=== PATIENT | male | born 1995 | race Caucasian/White ===

== ENCOUNTER 2021-12-08 20:04 | Emergency (ER) | payer BC ==
--- NOTE | 2021-12-08 22:34 | ER ---
Nurse's Notes [facility] Name: Anderson Stokes Age: 26 yrs Sex: Male : 1995 Arrival Date: 12/08/2021 Time: 20:09 Bed 19 Private MD: Diagnosis: GI Bleed/ Gastrointestinal hemorrhage, unspecified;Unspecified hemorrhoids Presentation: 12/08 20:51 Chief complaint: Patient states: I am bleeding from my rectum and my sisters think I bm7 have a rupture hemorrhoid. Every time I sit on the toilet I have bright red bleeding. Coronavirus screen: At this time, the client does not indicate any symptoms associated with coronavirus-19. Ebola Screen: No symptoms or risks identified at this time. Initial Sepsis Screen: Does the patient meet any 2 criteria? No. Patient's initial sepsis screen is negative. Does the patient have a suspected source of infection? No. Patient's initial sepsis screen is negative. Risk Assessment: Do you want to hurt yourself or someone else? Patient reports no desire to harm self or others. Onset of symptoms was December 07, 2021. 20:51 Method Of Arrival: Ambulatory 7 20:51 Acuity: KASSIE 3 bm7 Triage Assessment: 20:53 General: Appears in no apparent distress. uncomfortable, obese, well groomed, well bm7 developed, Behavior is calm, cooperative, appropriate for age. Pain: Complains of pain in right lower quadrant and left lower quadrant Pain does not radiate. EENT: No deficits noted. No signs and/or symptoms were reported regarding the EENT system. Neuro: No deficits noted. Cardiovascular: No deficits noted. Respiratory: No deficits noted. GI: Reports lower abdominal pain, constipation, rectal bleeding, bloody stool, hemorrhoids. : No deficits noted. No signs and/or symptoms were reported regarding the genitourinary system. Derm: No deficits noted. No signs and/or symptoms reported regarding the dermatologic system. Musculoskeletal: No deficits noted. No signs and/or symptoms reported regarding the musculoskeletal system. Historical: - Allergies: 20:53 No Known Allergies; bm7 - Home Meds: 20:53 None [Active]; bm7 - PMHx: 20:53 None; bm7 - PSHx: 20:53 None; bm7 - Immunization history:: Adult Immunizations up to date, Client reports having NOT received the Covid vaccine. - Social history:: Smoking status: Patient denies any tobacco usage or history of. Screenin:52 Abuse screen: Denies threats or abuse. Nutritional screening: No deficits noted. ll3 Tuberculosis screening: No symptoms or risk factors identified. Fall Risk None identified. Assessment: 21:20 General: Appears uncomfortable, Behavior is calm, cooperative. Pain: Complains of pain ll3 in gluteal cleft. Neuro: Level of Consciousness is awake, alert, obeys commands, Oriented to person, place, time, situation. Respiratory: Respiratory effort is even, unlabored, Respiratory pattern is regular, symmetrical. Derm: Reports pain Rectal bleeding. Vital Signs: 20:51 BP 162 / 90; Pulse 72; Resp 16; Temp 99.2(O); Pulse Ox 100% on R/A; Weight 151.95 kg bm7 (R); Height 6 ft. 0 in. (182.88 cm); Pain 3/10; 22:52 BP 155 / 92; Pulse 65; Resp 16; Pulse Ox 100% on R/A; ll3 20:51 Body Mass Index 45.43 (151.95 kg, 182.88 cm) bm7 ED Course: 20:09 Patient arrived in ED. jj6 20:19 Hieu Key MD is Attending Physician. kdr 20:53 Triage completed. bm7 20:53 Arm band placed on left wrist. bm7 22:52 Patient has correct armband on for positive identification. Bed in low position. Call ll3 light in reach. Side rails up X 1. 22:52 No provider procedures requiring assistance completed. Patient did not have IV access ll3 during this emergency room visit. Administered Medications: No medications were administered Medication: 22:52 VIS not applicable for this client. ll3 Outcome: 22:33 Discharge ordered by . kdr 22:52 Discharged to home ambulatory. ll3 22:52 Condition: stable 22:52 Discharge instructions given to patient, Instructed on discharge instructions, follow up and referral plans. medication usage, Demonstrated understanding of instructions, follow-up care, medications, Prescriptions given X 2. 22:53 Patient left the ED. ll3 Signatures: Hieu Key MD MD kdr McCarthy, Brittany, RN RN 7 Sariah Guzman j6 Malcolm Dennison, RN RN ll3
--- NOTE | 2021-12-08 22:34 | EDPHYS ---
Physician Documentation [facility] Name: Anderson Stokes Age: 26 yrs Sex: Male : 1995 Arrival Date: 12/08/2021 Time: 20:09 Bed 19 Private MD: ED Physician Hieu Key HPI: 12/08 23:37 This 26 yrs old Male presents to ER via Ambulatory with complaints of Hemorrhoids. kdr 23:37 The patient presents to the emergency department with rectal bleeding, bright red blood kdr with bowel movement, in toilet bowl. Onset: The symptoms/episode began/occurred yesterday. Abdominal pain: none is appreciated. Modifying factors: The symptoms are alleviated by nothing, the symptoms are aggravated by nothing. Associated signs and symptoms: The patient has no apparent associated signs or symptoms. Severity of symptoms: At their worst the symptoms were mild in the emergency department the symptoms are unchanged. The patient has not experienced similar symptoms in the past. The patient has not recently seen a physician. Historical: - Allergies: 20:53 No Known Allergies; bm7 - Home Meds: 20:53 None [Active]; bm7 - PMHx: 20:53 None; bm7 - PSHx: 20:53 None; bm7 - Immunization history:: Adult Immunizations up to date, Client reports having NOT received the Covid vaccine. - Social history:: Smoking status: Patient denies any tobacco usage or history of. ROS: 23:37 Constitutional: Negative for fever, chills, and weight loss, Eyes: Negative for injury, kdr pain, redness, and discharge, ENT: Negative for injury, pain, and discharge, Neck: Negative for injury, pain, and swelling, Cardiovascular: Negative for chest pain, palpitations, and edema, Respiratory: Negative for shortness of breath, cough, wheezing, and pleuritic chest pain, Back: Negative for injury and pain, : Negative for injury, bleeding, discharge, and swelling, MS/Extremity: Negative for injury and deformity, Skin: Negative for injury, rash, and discoloration, Neuro: Negative for headache, weakness, numbness, tingling, and seizure activity. Psych: Negative for depression, anxiety, suicide ideation, homicidal ideation, and hallucinations, Allergy/Immunology: Negative for hives, rash, and allergies, Endocrine: Negative for neck swelling, polydipsia, polyuria, polyphagia, and marked weight changes, Hematologic/Lymphatic: Negative for swollen nodes, abnormal bleeding, and unusual bruising. 23:37 Abdomen/GI: Positive for rectal pain, rectal bleeding. Exam: 23:37 Constitutional: This is a well developed, well nourished patient who is awake, alert, kdr and in no acute distress. Head/Face: Normocephalic, atraumatic. Respiratory: Lungs have equal breath sounds bilaterally, clear to auscultation and percussion. No rales, rhonchi or wheezes noted. No increased work of breathing, no retractions or nasal flaring. Abdomen/GI: Soft, non-tender, with normal bowel sounds. No distension or tympany. No guarding or rebound. No evidence of tenderness throughout. Back: No spinal tenderness. No costovertebral tenderness. Full range of motion. 23:37 Abdomen/GI: Rectal exam: hemorrhoid(s), external, with pain, without bleeding, without thrombosis. Vital Signs: 20:51 BP 162 / 90; Pulse 72; Resp 16; Temp 99.2(O); Pulse Ox 100% on R/A; Weight 151.95 kg bm7 (R); Height 6 ft. 0 in. (182.88 cm); Pain 3/10; 22:52 BP 155 / 92; Pulse 65; Resp 16; Pulse Ox 100% on R/A; ll3 20:51 Body Mass Index 45.43 (151.95 kg, 182.88 cm) bm7 MDM: 22:33 Patient medically screened. kdr 23:37 Data reviewed: vital signs, nurses notes. Counseling: I had a detailed discussion with kdr the patient and/or guardian regarding: the historical points, exam findings, and any diagnostic results supporting the discharge/admit diagnosis, the need for outpatient follow up. Administered Medications: No medications were administered Disposition Summary: 12/08/21 22:33 Discharge Ordered Location: Home kdr Problem: new kdr Symptoms: have improved kdr Condition: Stable kdr Diagnosis - GI Bleed/ Gastrointestinal hemorrhage, unspecified kdr - Unspecified hemorrhoids kdr Followup: kdr - With: Private Physician - When: 2 - 3 days - Reason: If symptoms return, Further diagnostic work-up, Recheck today's complaints, Continuance of care, Re-evaluation by your physician Discharge Instructions: - Discharge Summary Sheet kdr - High-Fiber Diet kdr - Gastrointestinal Bleeding kdr - Rectal Bleeding kdr - Hemorrhoids, [id number] kdr - How to Take a Sitz Bath kdr - Rectal Bleeding, [id number] kdr - Surgical Procedures for Hemorrhoids kdr - Nonsurgical Procedures for Hemorrhoids, Care After kdr Forms: - Medication Reconciliation Form kdr - Thank You Letter kdr Prescriptions: - Miralax - take 1 packet by ORAL route once daily As needed; 1 box; Refills: 0, Product kdr Selection Permitted - Tucks (lei lo) - Apply to affected area 1 patch by RECTAL route as directed As needed Use as kdr directed on box; 1 box; Refills: 0, Product Selection Permitted Signatures: Hieu Key MD MD kdr Anastacia Alcantara RN RN bm7
[2021-12-09 02:12] VITALS: TEMP 99.2; O2SAT 100
[2021-12-09 02:15] VITALS: BP 155/92
== END 2021-12-08 22:53 | disposition home or self-care (01) ==
LOC: ER 20:04
DX: K64.9 Unspecified hemorrhoids (principal)
CPT/HCPCS: 99282

== ENCOUNTER 2023-03-30 11:52 | Emergency (ER) | payer BC ==
[2023-03-30 12:47] LABS: SARS-CoV-2 Antigen Rapid Res Negative (Negative)
--- NOTE | 2023-03-30 12:50 | EDPHYS ---
Physician Documentation [facility] Name: Anderson Stokes Age: 28 yrs Sex: Male : 1995 Arrival Date: 03/30/2023 Time: 11:52 Bed IW2 Private MD: ED Physician Julio Mortensen HPI: 03/30 12:15 This 28 yrs old Male presents to ER via Ambulatory with complaints of Flu Symptoms. sb4 12:18 headache, fever, nasal drainage, sore throat x 3 days. has been taking OTC medications sb4 without resolution of symptoms. denies any sick contacts. no cough, chest pain, sob, nausea, vomiting, diarrhea, abd pain. Historical: - Allergies: 12:08 No Known Allergies; hb - Home Meds: 12:08 None [Active]; hb - PMHx: 12:08 None; hb - PSHx: 12:08 None; hb - Immunization history:: Adult Immunizations up to date. - Social history:: Smoking status: Patient denies any tobacco usage or history of. ROS: 12:18 Cardiovascular: Negative for chest pain, palpitations, and edema, Respiratory: Negative sb4 for shortness of breath, cough, wheezing, and pleuritic chest pain, 12:18 Constitutional: Positive for fever, 12:18 ENT: Positive for nasal discharge, sinus congestion, sore throat, 12:18 All other systems are negative, Exam: 12:18 Constitutional: This is a well developed, well nourished patient who is awake, alert, sb4 and in no acute distress. Head/Face: Normocephalic, atraumatic. Eyes: Extra-ocular motions intact. Periorbital areas with no swelling, redness, or edema. Cardiovascular: Regular rate and rhythm with a normal S1 and S2. Respiratory: Lungs have equal breath sounds bilaterally, clear to auscultation and percussion. No rales, rhonchi or wheezes noted. No increased work of breathing, no retractions or nasal flaring. Abdomen/GI: Soft, non-tender, no distension. Skin: Warm, dry with normal turgor. Normal color with no rashes, no lesions, and no evidence of cellulitis. MS/ Extremity: Pulses equal, no cyanosis. Neurovascular intact. Full, normal range of motion. Neuro: Awake and alert, GCS 15, oriented to person, place, time, and situation. Motor strength 5/5 in all extremities. Sensory grossly intact. 12:18 ENT: TM's: erythema, that is mild, bilaterally, Posterior pharynx: Airway: normal, no evidence of obstruction, patent, erythema, that is moderate, Vital Signs: 12:07 BP 189 / 98; Pulse 100; Resp 18; Temp 97.9(TE); Pulse Ox 98% on R/A; Weight 151.95 kg; hb Height 6 ft. 0 in. ; Pain 6/10; 12:07 Body Mass Index 45.43 (151.95 kg, 182.88 cm) hb 12:07 Pain Scale: Adult hb MDM: 12:10 Patient medically screened. sb4 12:18 Differential diagnosis: viral Infection, bacterial infection, pharyngitis, covid, flu, sb4 tonsilitis, sinusitis. 12:48 Data reviewed: vital signs, nurses notes, lab test result(s), and as a result, I will sb4 discharge patient. Counseling: I had a detailed discussion with the patient and/or guardian regarding the historical points, exam findings, and any diagnostic results supporting the discharge/admit diagnosis, lab results, to return to the emergency department if symptoms worsen or persist or if there are any questions or concerns that arise at home. 12 12:13 Order name: SARS RAPID; Complete Time: 12:48 sb4 03/30 12:13 Order name: Flu; Complete Time: 13:03 sb4 03/30 12:13 Order name: Strep; Complete Time: 12:48 sb4 Administered Medications: No medications were administered Disposition Summary: 03/30/23 12:49 Discharge Ordered Notes: Location: Home sb4 Problem: an ongoing problem sb4 Symptoms: are unchanged sb4 Condition: Stable sb4 Diagnosis - Streptococcal pharyngitis sb4 - Elevated blood-pressure reading, without diagnosis of hypertension sb4 Followup: sb4 - With: Emergency Department - When: As needed - Reason: Trouble breathing, Worsening of condition Discharge Instructions: - Discharge Summary Sheet sb4 - Strep Throat, Adult, [id number] sb4 - Hypertension, Adult, [id number] sb4 Forms: - Work release form hb - Medication Reconciliation Form sb4 - Thank You Letter sb4 - Antibiotic Education sb4 - Prescription Opioid Use sb4 - Patient Portal Instructions sb4 - Leadership Thank You Letter sb4 Prescriptions: - Amoxicillin 875 mg Oral Tablet - take 1 tablet ORAL route every 12 hours for 10 days; 20 tablet; Refills: 0, sb4 Product Selection Permitted Signatures: Dispatcher [employer] Stella Morrison RN RN hb Brown, Sophia, LUNA CARRASCO sb4
--- NOTE | 2023-03-30 12:50 | ER ---
Nurse's Notes [facility] Name: Anderson Stokes Age: 28 yrs Sex: Male : 1995 Arrival Date: 03/30/2023 Time: 11:52 Bed IW2 Private MD: Diagnosis: Streptococcal pharyngitis;Elevated blood-pressure reading, without diagnosis of hypertension Presentation: 03/30 12:07 Chief complaint: Sore throat, headache, sinus congestion, fatigue, and fever x 2-3 hb days. Coronavirus screen: Client presents with at least one sign or symptom that may indicate coronavirus-19. Provider contacted for isolation considerations. Ebola Screen: No symptoms or risks identified at this time. Initial Sepsis Screen: Does the patient meet any 2 criteria? HR > 90 bpm. No. Patient's initial sepsis screen is negative. Does the patient have a suspected source of infection? No. Patient's initial sepsis screen is negative. Risk Assessment: Do you want to hurt yourself or someone else? Patient reports no desire to harm self or others. Onset of symptoms was March 28, 2023. 12:07 Method Of Arrival: Ambulatory hb 12:07 Acuity: KASSIE 4 hb Historical: - Allergies: 12:08 No Known Allergies; hb - Home Meds: 12:08 None [Active]; hb - PMHx: 12:08 None; hb - PSHx: 12:08 None; hb - Immunization history:: Adult Immunizations up to date. - Social history:: Smoking status: Patient denies any tobacco usage or history of. Vital Signs: 12:07 BP 189 / 98; Pulse 100; Resp 18; Temp 97.9(TE); Pulse Ox 98% on R/A; Weight 151.95 kg; hb Height 6 ft. 0 in. ; Pain 6/10; 12:07 Body Mass Index 45.43 (151.95 kg, 182.88 cm) hb 12:07 Pain Scale: Adult hb ED Course: 11:54 Patient arrived in ED. mg5 11:57 Paige Cedeño PA-C is PHCP. sb4 11:57 Julio Mortensen is Attending Physician. sb4 12:08 Triage completed. hb 12:08 Arm band placed on. hb Administered Medications: No medications were administered Outcome: 12:49 Discharge ordered by MD. pedroza 13:16 Patient left the ED. hb Signatures: Stella Conley, RN RN Paige Hutchins PA-C PA-C sb4 Katya Vaughan mg5
[2023-03-30 13:21] VITALS: BP 189/98; TEMP 97.9; O2SAT 98
== END 2023-03-30 13:16 | disposition home or self-care (01) ==
LOC: ER 11:52
DX: J02.0 Streptococcal pharyngitis (principal); R03.0 Elevated blood-pressure reading, without diagnosis of hypertension
CPT/HCPCS: 36415; 87081; 87804; 87811; 99281